=== PATIENT | female | born 1995 | race Caucasian/White ===

== ENCOUNTER 2018-04-15 21:50 | Outpatient (CLI) | payer OTHER, MEDICAID, SELFPAY | END 2018-04-15 22:50 | disposition home or self-care (01) | LOC: OB 04-17 09:21 | PROVIDERS: Visit Provider Family Medicine | DX: Z34.03 Encounter for supervision of normal first pregnancy, third trimester (principal); Z3A.31 31 weeks gestation of pregnancy | CPT/HCPCS: 59025; G0378; G0379 ==

== ENCOUNTER → 2018-05-13 14:13 | Outpatient (CLI) | payer OTHER, MEDICAID, SELFPAY ==
[2018-05-14 15:43] LABS: Strep Grp B PCR NEG for Grp B Strep
== END ==
PROVIDERS: Visit Provider Obstetrics & Gynecology
DX: Z3A.35 35 weeks gestation of pregnancy (principal)
CPT/HCPCS: 87653

== ENCOUNTER 2018-06-10 13:48 | Outpatient (CLI) | payer OTHER, MEDICAID, SELFPAY ==
--- NOTE | 2018-06-11 06:53 | P.TNLD_ITS ---
Visit Information Visit Information Date of evaluation: 06/10/18 Primary OB Provider: Lashawn Jones Reason for Evaluation: Yes non-stress test non-stress test reason: hypertension/ pre-eclampsia Evaluation Evaluation Baseline heart rate: 135 Variability: Moderate (11-25) monitor accelerations: Present monitor decelerations: Absent Category of Tracing: I Diagnosis, Plan/Disposition Final Diagnosis (1) 39 weeks gestation of : Current Visit: No Status: Acute (2) Gestational hypertension: Current Visit: No Status: Acute Plan/Disposition Plan: Discharge to home [facility]s Follow up as scheduled next week S/S of PIH reviewed
== END 2018-06-10 15:16 | disposition home or self-care (01) ==
LOC: LABOR 14:22 → OB 06-11 15:51
PROVIDERS: Visit Provider Obstetrics & Gynecology
DX: Z3A.39 39 weeks gestation of pregnancy (principal); O13.3 Gestational [pregnancy-induced] hypertension without significant proteinuria, third trimester
CPT/HCPCS: 59025; G0378; G0379

== ENCOUNTER 2018-06-17 14:56 | Outpatient (CLI) | payer OTHER, MEDICAID, SELFPAY ==
[2018-06-17 15:51] LABS: Add Manual Diff / Slide Review NO; Basophils Percent Auto 0.5 % (0-2); Eosinophils Percent Auto 0.4 % (2-4); Hematocrit 40.1 % (36-46); Hemoglobin 14.6 g/dL (12.0-16.0); Mean Corpuscular HGB Conc 36.3 % (30-36); Mean Corpuscular Hemoglobin 31.7 PG (26-34); Mean Corpuscular Volume 87.2 fL (80-100); Monocytes Percent Auto 6.6 % (3-14); Neutrophils Absolute Auto 9800 /uL (3000-5900); Neutrophils Percent Auto 77.5 % (50-75); Platelet Count 181 X10^3/uL (150-400); Red Cell Distribution Width 13.2 % (11.6-14.8); White Blood Cell Count 12.6 X10^3/uL (4.5-11.0)
[2018-06-17 16:16] LABS: Alanine Aminotransferase 26 IU/L (9-52); Albumin 3.6 g/dL (3.5-5.0); Albumin Globulin Ratio 1.4 (1.0-2.8); Alkaline Phosphatase 116 U/L (38-126); Aspartate Aminotransferase 15 IU/L (14-36); BUN Creatinine Ratio 13.3 (6-22); Bilirubin Total 0.5 mg/dL (0.2-1.3); Bilirubin Unconjugated 0.2 mg/dL (0.0-1.1); Blood Urea Nitrogen 8 mg/dL (7-17); Calcium 10.2 mg/dL (8.4-10.2); Carbon Dioxide 23 mmol/L (22-32); Chloride 104 mmol/L (98-107); Estimated Glomerular Filt Rate > 60.0 mL/min (>60); Globulin 2.5 g/dL (1.7-4.1); Glucose 78 mg/dL (70-100); HEMOLYSIS < 15 (0-50); Sodium 138 mmol/L (137-145); Total Protein 6.1 g/dL (6.3-8.2); Uric Acid 5.2 mg/dL (2.5-6.2)
== END 2018-06-17 16:52 | disposition home or self-care (01) ==
LOC: LABOR 16:39 → OB 06-21 10:00
PROVIDERS: Visit Provider Obstetrics & Gynecology
DX: O13.3 Gestational [pregnancy-induced] hypertension without significant proteinuria, third trimester (principal); Z3A.40 40 weeks gestation of pregnancy
CPT/HCPCS: 59025; 59050; 80053; 80076; 84550; 85025; G0378; G0379

== ENCOUNTER 2018-06-18 07:08 | Inpatient (IN) | payer OTHER, MEDICAID, SELFPAY ==
[2018-06-18 08:12] VITALS: BP 157/87
[2018-06-18] MEDS: OXYTOCIN PREMIX 30 UNIT/500 ML PLAST..BAG IV (09:25)
[2018-06-18] MEDS: LACTATED RINGERS 1,000 ML 100 ML IV (09:25)
[2018-06-18 09:27] LABS: Add Manual Diff / Slide Review NO; Basophils Percent Auto 0.5 % (0-2); Eosinophils Percent Auto 0.7 % (2-4); Hematocrit 40.6 % (36-46); Hemoglobin 14.5 g/dL (12.0-16.0); Lymphocytes Percent Auto 16.9 % (25-40); Mean Corpuscular HGB Conc 35.7 % (30-36); Mean Corpuscular Hemoglobin 31.1 PG (26-34); Mean Corpuscular Volume 87.1 fL (80-100); Monocytes Percent Auto 7.5 % (3-14); Neutrophils Absolute Auto 10000 /uL (3000-5900); Neutrophils Percent Auto 74.4 % (50-75); Platelet Count 190 X10^3/uL (150-400); Red Blood Cell Count 4.66 X10^6/uL (4.0-5.2); Red Cell Distribution Width 13.2 % (11.6-14.8); White Blood Cell Count 13.4 X10^3/uL (4.5-11.0)
[2018-06-18] MEDS: LACTATED RINGERS 1,000 ML 125 ML IV ×2 (13:33→15:01)
--- NOTE | 2018-06-18 19:58 | PM.OBHP.1 ---
OB HPI Date/Time Date of admission: 06/18/18 Date Patient Seen: 06/18/18 Time Patient Seen: 07:15 History of Present Condition Chief complaint: LABOR AND DELIVERY : 2 Para: 0 Estimated Date of Delivery: 06/12/18 Estimated Gestational Age (weeks): 40+ 6 Narrative: Karey Saini is a 22 year old female 2 para 1 presented for induction of labor at 40-,6/7 weeks gestation due to -induced hypertension Indications Indication for induction OB: post dates and medical complication (-induced hypertension) History of Present care: good care, initiated at week # (18) and number of visits (11) Dating criteria: LMP confirmed by 1st trimester US Ultrasounds: normal mid trimester US Obstetrical complications: gestational hypertension Medical complications: none Preadmission Labs Blood type: O (+) positive -: Antibody screen: negative, GBS status: negative, HBsAG: negative, HIV: negative, HSV 1: negative, HSV 2: negative and RPR/VDLR: negative -: Chlamydia screen: not detected and Gonorrhea screen: not detected -: Rubella: immune and Varicella: immune HCT: 36.8 HCAB: negative Quad screen: Normal 1 hr GTT: 92 Prior (ies) History: 1 miscarriage in 2016 Evaluation Evaluation Baseline heart rate: 140 Variability: Moderate (11-25) monitor accelerations: Present monitor decelerations: Absent Category of Tracing: I Cervical dilation (cm): 3 Cervical effacement (%): 80 station: -1 Laboratory results: Laboratory Tests 06/18/18 06/18/18 08:50 08:50 WBC 13.4 H RBC 4.66 Hgb 14.5 Hct 40.6 MCV 87.1 MCH 31.1 MCHC 35.7 RDW 13.2 Plt Count 190 Neut % (Auto) 74.4 Lymph % (Auto) 16.9 L Harvey % (Auto) 7.5 Eos % (Auto) 0.7 L Baso % (Auto) 0.5 Neut # (Auto) 70196 H Blood Type O Positive Antibody Screen Negative PFSH Social History Smoking Status: Current every day smoker Meds Home Medications Medication Instructions Recorded Confirmed Type nicotine [Nicoderm CQ] 7 mg TD QDAY #30 patch 01/11/18 06/18/18 Rx Allergies Allergy/AdvReac Type Severity Reaction Status Date / Time codeine [CODEINE] Allergy Mild HIVES Verified 06/18/18 08:02 Exam Vital Signs (past 8 hours): Generally: A well-developed, well-nourished white female, no acute distress Lungs: Clear to auscultation bilaterally Cardiovascular: Regular rate and rhythm Fundal height: 40 cm Estimated weight 7 and 0.5 lb Extremities: Trace edema, negative Homans, 1+ DTRs. Objective Labs Result Diagrams: 06/18/18 08:50 Labs: Laboratory Results - last 24 hr 06/18/18 06/18/18 08:50 08:50 WBC 13.4 H RBC 4.66 Hgb 14.5 Hct 40.6 MCV 87.1 MCH 31.1 MCHC 35.7 RDW 13.2 Plt Count 190 Neut % (Auto) 74.4 Lymph % (Auto) 16.9 L Harvey % (Auto) 7.5 Eos % (Auto) 0.7 L Baso % (Auto) 0.5 Neut # (Auto) 42003 H Blood Type O Positive Antibody Screen Negative Assessment and Plan (1) 40 weeks gestation of : Current visit: Yes Status: Acute (2) induced hypertension: Current visit: Yes Status: Acute (3) Encounter for induction of labor: Current visit: Yes Status: Acute Assessment: 22-year-old 2 para 0 at 40-,6/7 weeks gestation with -induced hypertension for induction of labor Plan: Pitocin per protocol 2 Epidural as necessary Expected management to spontaneous vaginal delivery
--- NOTE | 2018-06-18 20:11 | P.HPOB_ITS ---
OB HPI Date/Time Date of admission: 06/18/18 Date Patient Seen: 06/18/18 Time Patient Seen: 07:15 History of Present Condition Chief complaint: LABOR AND DELIVERY : 2 Para: 0 Estimated Date of Delivery: 06/12/18 Estimated Gestational Age (weeks): 40+ 6 Narrative: Karey Saini is a 22 year old female 2 para 1 presented for induction of labor at 40-,6/7 weeks gestation due to -induced hypertension Indications Indication for induction OB: post dates and medical complication (- induced hypertension) History of Present care: good care, initiated at week # (18) and number of visits (11) Dating criteria: LMP confirmed by 1st trimester US Ultrasounds: normal mid trimester US Obstetrical complications: gestational hypertension Medical complications: none Preadmission Labs Blood type: O (+) positive -: Antibody screen: negative, GBS status: negative, HBsAG: negative, HIV: negative, HSV 1: negative, HSV 2: negative and RPR/VDLR: negative -: Chlamydia screen: not detected and Gonorrhea screen: not detected -: Rubella: immune and Varicella: immune HCT: 36.8 HCAB: negative Quad screen: Normal 1 hr GTT: 92 Prior (ies) History: 1 miscarriage in 2016 Evaluation Evaluation Baseline heart rate: 140 Variability: Moderate (11-25) monitor accelerations: Present monitor decelerations: Absent Category of Tracing: I Cervical dilation (cm): 3 Cervical effacement (%): 80 station: -1 Laboratory results: Laboratory Tests 06/18/18 06/18/18 08:50 08:50 WBC 13.4 H RBC 4.66 Hgb 14.5 Hct 40.6 MCV 87.1 MCH 31.1 MCHC 35.7 RDW 13.2 Plt Count 190 Neut % (Auto) 74.4 Lymph % (Auto) 16.9 L Crawford % (Auto) 7.5 Eos % (Auto) 0.7 L Baso % (Auto) 0.5 Neut # (Auto) [id number] H Blood Type O Positive Antibody Screen Negative PFSH Social History Smoking Status: Current every day smoker Meds Home Medications Medication Instructions Recorded Confirmed Type nicotine [Nicoderm CQ] 7 mg TD QDAY #30 patch 01/11/18 06/18/18 Rx Allergies Allergy/AdvReac Type Severity Reaction Status Date / Time codeine [CODEINE] Allergy Mild HIVES Verified 06/18/18 08:02 Exam Vital Signs (past 8 hours): Generally: A well-developed, well-nourished white female, no acute distress Lungs: Clear to auscultation bilaterally Cardiovascular: Regular rate and rhythm Fundal height: 40 cm Estimated weight 7 and 0.5 lb Extremities: Trace edema, negative Homans, 1+ DTRs. Objective Labs Result Diagrams: 06/18/18 08:50 Labs: Laboratory Results - last 24 hr 06/18/18 06/18/18 08:50 08:50 WBC 13.4 H RBC 4.66 Hgb 14.5 Hct 40.6 MCV 87.1 MCH 31.1 MCHC 35.7 RDW 13.2 Plt Count 190 Neut % (Auto) 74.4 Lymph % (Auto) 16.9 L Crawford % (Auto) 7.5 Eos % (Auto) 0.7 L Baso % (Auto) 0.5 Neut # (Auto) 48752 H Blood Type O Positive Antibody Screen Negative Assessment and Plan (1) 40 weeks gestation of : Current visit: Yes Status: Acute (2) induced hypertension: Current visit: Yes Status: Acute (3) Encounter for induction of labor: Current visit: Yes Status: Acute Assessment: 22-year-old 2 para 0 at 40-,6/7 weeks gestation with -induced hypertension for induction of labor Plan: Pitocin per protocol 2 Epidural as necessary Expected management to spontaneous vaginal delivery
--- NOTE | 2018-06-18 20:57 | PM.OBPRVD ---
Events: Induced HTN and Labor Induction Delivery date: 06/18/18 Induction method: per pitocin protocol Delivery augmentation: rupture of membranes Delivery monitor: external FHT and external uterine Route of delivery: Episiotomy description: None Laceration description: Perineal - 2nd Degree Delivery repair: vicryl and chromic Estimated blood loss (mL): 300 Anesthesia type: Epidural Complications: None Narrative: Patient complete and pushed for 45 min. At 8:30 p.m., a live female delivered spontaneously over an intact perineum. No nuchal cord. The remainder of the body delivered without difficulty and was placed on mom's abdomen. The cord was double clamped and cut. Cord bloods were obtained. The placenta delivered intact with a 3 vessel cord at 8:33 p.m.. Fundus was massaged to firm. Second-degree vaginal/perineal laceration was repaired in the usual fashion. Hemostasis was achieved. Estimated blood loss 300 cc. Apgars 8 at 1 min and 9 at 5 min. . Epidural analgesia. Mom and stable to recovery. Plan for aftercare: To Routine [id number]
[2018-06-18] MEDS: IBUPROFEN 600 MG TABLET PO (22:30)
[2018-06-18] MEDS: LANOLIN OINT 7 GM 1 APPLIC TOP (23:17)
[2018-06-18] MEDS: DERMOPLAST SPRAY 20% 60 ML 1 SPRAY TOP (23:18)
[2018-06-19] MEDS: IBUPROFEN 600 MG TABLET PO ×4 (05:04→23:46)
[2018-06-19 06:35] LABS: Hematocrit 33.9 % (36-46)
[2018-06-19] MEDS: DOCUSATE 250 MG CAPSULE PO (11:39)
[2018-06-19] MEDS: PRENATAL VIT,CALC/IRON/FOLIC 1 TABLET 1 TAB PO (11:39)
[2018-06-20] MEDS: OXYCODONE/ACETAMINOPHEN 5/325 TABLET 1 TAB PO (05:15)
[2018-06-20] MEDS: IBUPROFEN 600 MG TABLET PO ×2 (10:03→16:57)
[2018-06-20] MEDS: DOCUSATE 250 MG CAPSULE PO (10:06)
[2018-06-20] MEDS: PRENATAL VIT,CALC/IRON/FOLIC 1 TABLET 1 TAB PO (10:06)
[2018-06-20] MEDS: LANOLIN OINT 7 GM 1 APPLIC TOP (10:06)
--- NOTE | 2018-06-20 10:55 | PM.OBPN.1 ---
Subjective - OB Interval history: Patient is a 22-year-old 1 para 1 day # 1 status post spontaneous vaginal delivery after induction of labor. going well. Pain well controlled with ibuprofen. Bleeding tapering. Exam Vital Signs (past 8 hours): Generally: Patient is sitting up in bed, holding infant, no acute distress Fundus: Firm at U -1 Extremities: Negative Homans, trace edema Objective Labs Result Diagrams: 06/19/18 06:25 Assessment & Plan (1) 40 weeks gestation of : Status: Acute Current Visit: Yes (2) induced hypertension: Status: Acute Current Visit: Yes (3) Encounter for induction of labor: Status: Acute Current Visit: Yes (4) Normal spontaneous vaginal delivery: Status: Acute Assessment and plan: Assessment: day # 1. Status post spontaneous vaginal delivery after induction of labor Mom doing very well Plan: Anticipate discharge 06/20/2018 Current Visit: Yes Plan day: 1 plan OB: routine care Time Spent With Patient Total time spent is greater than 50% in coordination of care (as documented) at patient's floor/unit and/or counseling patient: less than 15 minutes
--- NOTE | 2018-06-20 10:58 | PM.OBDS.1 ---
Discharge Providers Date of admission: 06/18/18 07:08 Consults: 06/18/18 22:22 Consult to Wildlife Removal Specialist Routine Comment: Discharge provider: Lashawn Jones MD Summary Date Patient Seen: 06/20/18 Time Patient Seen: 10:59 Hospital Course: The patient presented on 06/17/2018 for induction of labor secondary to postdates and gestational hypertension She received Pitocin IV. Received an epidural for pain management. She had a spontaneous vaginal delivery without complication. Her course was unremarkable. Peripartum Data Infant Delivery Method: Natural Vaginal Laceration description: Vaginal - 2nd Degree Episiotomy description: None Procedures: Pitocin induction of labor Epidural Spontaneous vaginal delivery 2 laceration repair complications: none Discharge Diagnosis (1) 40 weeks gestation of : Status: Acute (2) induced hypertension: Status: Acute (3) Encounter for induction of labor: Status: Acute (4) Normal spontaneous vaginal delivery: Status: Acute Status at Discharge Functional status at discharge: independent ambulation Overall status at discharge: patient is progressing back to baseline Time Spent with Patient Total time spent providing and/or coordinating discharge services: Less than 30 minutes Objective Labs Result Diagrams: 06/19/18 06:25 Discharge Plan Discharge Plan Patient Disposition: Home Discharge comment: Call with fever, chills or bleeding vaginally more than a pad in an hour Discharge Med Rec/Prescriptions Prescriptions: New oxycodone-acetaminophen [Percocet] 5-325 mg tablet 1 tab PO Q4-6H PRN (Reason: pain) Qty: 20 RF: 0 ibuprofen 600 mg tablet 600 mg PO TID PRN (Reason: pain) Qty: 30 RF: 2 Continue nicotine [Nicoderm CQ] 7 MG patch 24 hour 7 mg TD QDAY Qty: 30 RF: 2 Provider Discharge Instructions Diet: Diet as Tolerated Activity: No intercourse Visit Report/Discharge Packet Instructions: DI for Labor and Delivery, Vaginal Discharge Data Attending Provider: Lashawn Jones Admit Date/Time: 06/18/18 07:08
[2018-06-20 19:00] VITALS: BP 134/70; PULSE 82; RESP 16; TEMP 36.8
== END 2018-06-20 19:01 | disposition home or self-care (01) | DRG 560 ==
PROVIDERS: Admitting Provider Obstetrics & Gynecology; Visit Provider Obstetrics & Gynecology
DX: O13.4 Gestational [pregnancy-induced] hypertension without significant proteinuria, complicating childbirth (principal); O48.0 Post-term pregnancy; Z3A.40 40 weeks gestation of pregnancy; Z37.0 Single live birth; O70.1 Second degree perineal laceration during delivery
CPT/HCPCS: 01967; 36415; 59025; 59050; 59409; 80053; 80076; 84550; 85014; 85018; 85025; 86850; 86900; 86901; G0378; G0379; J2590

== ENCOUNTER 2019-01-26 19:56 | Emergency (ER) | payer OTHER, MEDICAID, SELFPAY ==
[2019-01-26 19:59] VITALS: BP 133/83; PULSE 117; RESP 20; TEMP 37.3; O2SAT 96
--- NOTE | 2019-01-26 20:04 | ED_ITS ---
HPI - URI/Sore Throat General Chief Complaint: Upper Respiratory Symptoms Stated Complaint: states sinus infection all of a sudden Time Seen by Provider: 01/26/19 20:04 Source: patient Mode of arrival: ambulatory Limitations: no limitations History of Present Illness HPI Narrative: Patient is a 23-year-old female who presents with sudden onset of nasal and congestion and sinus pressure. She is currently being treated for shingles with gabapentin she had shingles outbreak about a week and half ago on her back. He says that has not gotten any worse or any better. As this morning she had facial pain and ear plugging. She feels like her neck is swollen. She has no fever. She says this feels like a sinus infection. He states he also has mild headache. Her vision has become blurry off and on throughout the day, it does not seem to last MD Complaint: sinus pain Onset (ago): hour(s) Relieving factors: nothing Exacerbating factors: nothing Able to tolerate fluids by mouth: Yes Related Data Previous Rx's Medication Instructions Recorded ibuprofen 600 mg PO TID PRN #30 tab 06/20/18 norethindrone (contraceptive) 0.35 0.35 mg PO DAILY #28 tab 07/30/18 mg tablet gabapentin 100 mg capsule 100 mg PO TID PRN #90 cap 01/23/19 Allergies Allergy/AdvReac Type Severity Reaction Status Date / Time codeine [CODEINE] Allergy Mild HIVES Verified 01/23/19 14:56 Review of Systems Review of Systems ROS Unobtainable: All systems reviewed & are unremarkable except as noted in HPI and below Constitutional Denies chills, Denies fever(s), Denies lethargy and Denies weakness ENT Ears, Nose, Mouth, and Throat: Reports as per HPI, Denies nasal discharge, Denies nasal obstruction, Reports sinus pressure, Denies sore throat and Denies throat swelling Cardiovascular Denies dyspnea and Denies dyspnea on exertion Respiratory Denies cough, Denies dyspnea, Denies dyspnea on exertion and Denies wheezing Gastrointestinal Gastrointestinal: Denies abdominal pain, Denies change in bowel habits, Denies diarrhea, Denies nausea and Denies vomiting Integumentary/Breasts Reports as per HPI Comments: Shingles on back Neurologic Denies weakness Allergic/Immunologic Denies throat swelling and Denies wheezing [facility] Medical History Anxiety (Chronic) Depression (Chronic) (spontaneous vaginal delivery) (Resolved) Surgical History S/P ACL repair (Resolved) Family History Father Diabetes mellitus Social History marital status: unmarried,single number of children: 1 household members: family lives independently: Yes occupational status: unemployed Smoking Status: Current every day smoker alcohol intake: current (rare) substance use type: does not use Family History Father Diabetes mellitus Social History marital status: unmarried,single number of children: 1 household members: family lives independently: Yes occupational status: unemployed Smoking Status: Current every day smoker alcohol intake: current (rare) substance use type: does not use Comment: Currently breast-feeding Exam Initial Vital Signs Initial Vital Signs: Vital Signs Temperature 99.1 F 01/26/19 19:59 Pulse Rate 117 H 01/26/19 19:59 Respiratory Rate 20 01/26/19 19:59 Blood Pressure 133/83 01/26/19 19:59 Pulse Oximetry 96 01/26/19 19:59 GENERAL: Anxious alert overweight female and in no acute distress. HEENT: Head atraumatic,EOMI, pupils reactive, mild facial maxillary tenderness, neck supple no meningeal signs EARS: Tympanic membranes visualized, no erythema or bulging, no hemotympanum PHARYNX: No erythema, no tonsillar exudate, no cervical lymphadenopathy CARDIOVASCULAR: Regular rate and rhythm without murmurs, rubs or gallops. RESPIRATORY: Breath sounds equal bilaterally, no wheezes rales or rhonchi. ABDOMEN: Soft, nontender. Normoactive bowel sounds all 4 quadrants. No guarding or rebound. EXTREMITIES: Normal range of motion, no clubbing or edema. Neurovascularly intact NEUROLOGICAL: Alert and oriented x4.Normal gait and speech. Cranial nerves II through XII grossly intact. SKIN: Shingle lesions noted right thorax. No surrounding erythema no gross drainage no other lesions noted. no petechiae Course Orders Ordered: Discontinued Medications Ketorolac Tromethamine (Toradol) 60 mg IM NOW ONE Stop: 01/26/19 20:20 Last Admin: 01/26/19 20:23 Dose: 60 mg Vital Signs - 8 hr 01/26/19 19:59 01/26/19 20:42 01/26/19 20:55 Temperature 99.1 F Pulse Rate 117 H 98 H 98 H Respiratory Rate 20 Blood Pressure 133/83 Pulse Oximetry 96 99 MDM - URI/Sore Throat MDM Narrative Medical decision making narrative: Patient's headache has overall improved. She has no neck pain. At this time I do not think herpes encephalitis. Her bigger complaint is sinus pain and pressure. At this time she does not meet requirements for antibiotics. She has only had this pain for less than 1 day. Discharge Plan Departure Patient Disposition: Home Clinical Impression: Acute sinus infection Qualifiers: Sinusitis location: maxillary Recurrence: non-recurrent Qualified Code(s): J01.00 - Acute maxillary sinusitis, unspecified Discharge Date/Time: 01/26/19 20:56 Interventions: ED Discharge Assessment Last Done: 01/26/19 20:55 Instructions: DI for Sinusitis Activity Restrictions/Additional Instructions: *You have been diagnosed with acute sinusitis *What to do: At this time antibiotics are not indicated. It is recommended symptom control. Stay hydrated. If symptoms worsen or persist for more than 7- 10 days then he may require antibiotics *Continue to take medications as directed *Follow up with your primary care provider in 2-3 days *Return to ER if you should have a fever more than 100.4, increasing headache, neck pain, or any new, worsening or concerning symptoms Prescriptions: No Action norethindrone (contraceptive) [Ortho Micronor] 0.35 mg tablet 0.35 mg PO DAILY Qty: 28 RF: 11 gabapentin 100 mg capsule 100 mg PO TID PRN (Reason: shingles pain) Qty: 90 RF: 0 ibuprofen 600 mg tablet 600 mg PO TID PRN (Reason: pain) Qty: 30 RF: 2 Referrals: Nelida Rose DO [Physician] -
[2019-01-26] MEDS: KETOROLAC 60 MG/2 ML VIAL IM (20:23)
[2019-01-26 20:42] VITALS: PULSE 98
[2019-01-26 20:55] VITALS: PULSE 98; O2SAT 99
== END 2019-01-26 20:56 | disposition home or self-care (01) ==
PROVIDERS: Emergency Provider Emergency Medicine
DX: J01.00 Acute maxillary sinusitis, unspecified (principal)
CPT/HCPCS: 96372; 99282; 99283; J1885

== ENCOUNTER 2019-06-25 18:40 | Emergency (ER) | payer OTHER, MEDICAID, SELFPAY ==
[2019-06-25 18:50] VITALS: BP 127/76; PULSE 89; RESP 16; TEMP 36.8; O2SAT 97; BMI 39.6
[2019-06-25] MEDS: LIDO 1%/SOD BICARB 8.4% (10ML) 10 ML SYRINGE INJ (19:56)
--- NOTE | 2019-06-25 20:18 | ED.WOUNDLAC ---
HPI - Wound/Laceration General Chief Complaint: Wound/Laceration Stated Complaint: sliced rt foot open on pole Time Seen by Provider: 06/25/19 19:39 Source: patient and family Mode of arrival: ambulatory Limitations: no limitations History of Present Illness HPI narrative: 23-year-old female daily smoker with noncontributory medical history presents with her and young child in the chief complaint of a superficial laceration on the bottom of her right foot when she was walking, she cut it on a metal support beam. She had minimal bleeding originally. Her tetanus is up-to-date. She has pain with ambulation and improvement with rest. She denies any numbness, tingling or weakness. She has no fever chills. Onset (ago): hour(s) Extremity Location: Right: foot Place: home Patient tetanus UTD: Yes Context: accidental Associated symptoms: pain Treatments prior to arrival: bandage Related Data Previous Rx's Medication Instructions Recorded ibuprofen 600 mg PO TID PRN #30 tab 06/20/18 norethindrone (contraceptive) 0.35 0.35 mg PO DAILY #28 tab 07/30/18 mg tablet fluticasone propionate 50 2 spray NASAL DAILY #19.8 gram 03/05/19 mcg/actuation nasal spray,suspension cephalexin [Keflex] 500 mg PO QID 7 Days #28 cap 06/25/19 Allergies Allergy/AdvReac Type Severity Reaction Status Date / Time codeine [CODEINE] Allergy Mild HIVES Verified 06/25/19 18:55 Review of Systems Constitutional Constitutional: Denies chills, Denies fatigue, Denies fever(s), Denies frequent falls, Denies lethargy and Denies weakness Eyes Eyes: Denies change in vision, Denies eye discharge, Denies irritation and Denies loss of vision ENT Ears, Nose, Mouth, and Throat: Denies change in voice, Denies dizziness, Denies neck pain, Denies sore throat and Denies throat swelling Cardiovascular Cardiovascular: Denies chest pain, Denies irregular heart rhythm, Denies lightheadedness, Denies palpitations, Denies dyspnea, Denies dyspnea on exertion and Denies orthopnea Respiratory Respiratory: Denies cough, Denies dyspnea, Denies dyspnea on exertion and Denies wheezing Gastrointestinal Gastrointestinal: Denies abdominal pain, Denies change in bowel habits, Denies diarrhea, Denies nausea and Denies vomiting Genitourinary Genitourinary: Denies hematuria, Denies flank pain, Denies urinary incontinence and Denies urinary urgency Musculoskeletal Musculoskeletal: Denies back pain, Denies muscle weakness, Denies neck pain, Denies numbness and Denies tingling Integumentary/Breasts Skin/Breast: Denies pruritus, Denies erythema, Denies rash and Reports wounds Neurologic Neurologic: Denies behavioral changes, Denies confusion, Denies dizziness, Denies frequent falls, Denies loss of vision, Denies numbness, Denies tingling and Denies weakness Psychiatric Psychiatric: Denies anxiety, Denies behavioral changes, Denies confusion, Denies depression, Denies homicidal ideation and Denies suicidal ideation Endocrine Endocrine: Denies fatigue, Denies flushing and Denies palpitations Hematologic/Lymphatic Hematologic/Lymphatic: Denies easy bruising Allergic/Immunologic Allergic/Immunologic: Denies urticaria, Denies throat swelling and Denies wheezing [facility] Medical History Anxiety (Chronic) Depression (Chronic) (spontaneous vaginal delivery) (Resolved) Surgical History S/P ACL repair (Resolved) Family History Father Diabetes mellitus Social History marital status: unmarried,single number of children: 1 household members: family lives independently: Yes occupational status: unemployed Smoking Status: Current every day smoker alcohol intake: current (rare) substance use type: does not use Family History Father Diabetes mellitus Social History marital status: unmarried,single number of children: 1 household members: family lives independently: Yes occupational status: unemployed Smoking Status: Current every day smoker alcohol intake: current (rare) substance use type: does not use Exam Narrative Exam Narrative: GEN: AOx3 and in mild distress EYES: Pupils are equal, round, and reactive to light and accommodation. Extraoccular muscles are intact bilaterally. There is no subconjunctival hemorrhage or exudate. CHEST: Lungs are clear to auscultation bilaterally and free of wheezes, rales, or rhonchi. Heart rate is regular rhythm, there are no murmurs, clicks, rubs, or gallops. There is no chest wall tenderness. ABD: Abdomen is soft and nontender. There is no guarding or rebound. Bowel sounds are normal in all 4 quadrants. There is no mass or organomegaly. EXT: Full painless ROM of all extremities with no loss of sensation or strength. SKIN: 1.5cm superficial laceration on plantar surface of R foot. Cleaned and inspected in a bloodless field, no involvement of deep structures. No indication for sutures. Warm, pink, and dry. No erythema or rash Initial Vital Signs Initial Vital Signs: Vital Signs Temperature 98.2 F 06/25/19 18:50 Pulse Rate 89 06/25/19 18:50 Respiratory Rate 16 06/25/19 18:50 Blood Pressure 127/76 06/25/19 18:50 Pulse Oximetry 97 06/25/19 18:50 Course Orders Ordered: Discontinued Medications Lidocaine/Sodium Bicarbonate (Buffered Lidocaine 10 Ml Syr) 10 ml INJ NOW ONE Stop: 06/25/19 19:40 Last Admin: 06/25/19 19:56 Dose: 10 ml Documented by: [email or web address] Vital Signs Vital signs: Vital Signs - 8 hr 06/25/19 18:50 Temperature 98.2 F Pulse Rate 89 Respiratory Rate 16 Blood Pressure 127/76 Pulse Oximetry 97 Discharge Plan Departure Patient Disposition: Home Clinical Impression: Laceration of foot Qualifiers: Encounter type: initial encounter Laterality: right Qualified Code(s): S91.311A - Laceration without foreign body, right foot, initial encounter Discharge Date/Time: 06/25/19 20:20 Instructions: DI for Minor Laceration Activity Restrictions/Additional Instructions: *You have been diagnosed with [minor laceration, not requiring suture] *What to do: *Take medications as directed *Follow up with your primary care provider in 2-3 days, call for an appointment. Let them know you were seen in the Emergency Department and that we ask that you be seen in follow up *Return to ER if you should have any new, worsening or concerning symptoms, such as [worsening redness, pain, drainage, or other bothersome symptoms] Prescriptions: New cephalexin [Keflex] 500 mg capsule 500 mg PO QID 7 Days Qty: 28 RF: 0 No Action norethindrone (contraceptive) [Ortho Micronor] 0.35 mg tablet 0.35 mg PO DAILY Qty: 28 RF: 11 fluticasone propionate 50 mcg/actuation spray,suspension 2 spray NASAL DAILY Qty: 19.8 RF: 3 ibuprofen 600 mg tablet 600 mg PO TID PRN (Reason: pain) Qty: 30 RF: 2 Referrals: Nelida Rose DO [Primary Care Provider] -
== END 2019-06-25 20:20 | disposition home or self-care (01) ==
PROVIDERS: Emergency Provider Emergency Medicine; PCP Family Medicine
DX: S91.311A Laceration without foreign body, right foot, initial encounter (principal)
CPT/HCPCS: 99282; 99283

== ENCOUNTER → 2019-11-01 11:33 | Outpatient (CLI) | payer OTHER, MEDICAID, SELFPAY ==
[2019-11-01 12:15] LABS: Pregnancy Test Urine Negative (Negative)
== END ==
PROVIDERS: PCP Family Medicine; Visit Provider Family Medicine
DX: Z32.00 Encounter for pregnancy test, result unknown (principal)
CPT/HCPCS: 81025

== ENCOUNTER → 2019-12-04 15:01 | Outpatient (CLI) | payer OTHER, MEDICAID, SELFPAY ==
[2019-12-04 15:58] LABS: Influenza A - CEPHEID Flu A NEGATIVE (NEGATIVE); Influenza B - CEPHEID Flu B NEGATIVE (NEGATIVE)
== END ==
PROVIDERS: PCP Family Medicine; Visit Provider Registered Nurse
DX: J11.1 Influenza due to unidentified influenza virus with other respiratory manifestations (principal)
CPT/HCPCS: 87502

== ENCOUNTER → 2020-06-07 13:38 | Outpatient (CLI) | payer OTHER, MEDICAID, SELFPAY ==
[2020-06-07 13:44] LABS: Bacteria Urine None Seen; RBC Urine None Seen (0-5/HPF); WBC Urine None Seen (0-5/HPF)
[2020-06-07 15:44] LABS: Appearance Urine UA CLEAR; Bilirubin Urine UA NEGATIVE (NEGATIVE); Color Urine UA YELLOW; Glucose Urine UA NEGATIVE (Negative); Ketones Urine UA NEGATIVE (NEGATIVE); Leukocyte Esterase Urine UA NEGATIVE (NEGATIVE); Nitrite Urine UA NEGATIVE (Negative); Occult Blood Urine UA NEGATIVE (Negative); Protein Urine UA NEGATIVE (Negative); Specific Gravity Urine UA <=1.005 (1.000-1.035); Urobilinogen Urine UA 0.2 E.U./dL (0.2)
[2020-06-07 15:56] LABS: pH Urine UA 6.5 (4.5-8.0)
[2020-06-07 16:06] LABS: Culture Indicated Urine Cult Not Indicated; Urine Comments Microscopic Normal
== END ==
PROVIDERS: PCP Family Medicine; Referring Provider Family Medicine; Visit Provider Family Medicine
DX: R30.0 Dysuria (principal); R35.0 Frequency of micturition; R39.15 Urgency of urination
CPT/HCPCS: 81001

== ENCOUNTER → 2020-06-08 09:48 | Outpatient (CLI) | payer OTHER, MEDICAID, SELFPAY ==
[2020-06-11 12:11] LABS: Chlamydia trachomatis Negative (Negative); Mycoplasma genitalium Negative (Negative); Neisseria gonorrhoeae Negative (Negative)
== END ==
PROVIDERS: PCP Family Medicine; Visit Provider Family Medicine
DX: N89.8 Other specified noninflammatory disorders of vagina (principal); R30.0 Dysuria
CPT/HCPCS: 87210; 87491; 87591

== ENCOUNTER → 2021-04-09 11:08 | Outpatient (CLI) | payer OTHER, MEDICAID, SELFPAY ==
[2021-04-09 11:47] LABS: COVID19 -Nasal RAPID Negative (Negative)
== END ==
PROVIDERS: PCP Family Medicine; Visit Provider Physician Assistant
DX: J02.9 Acute pharyngitis, unspecified (principal)
CPT/HCPCS: 87070; 87635

== ENCOUNTER 2021-05-07 17:39 | Emergency (ER) | payer OTHER, MEDICAID, SELFPAY ==
[2021-05-07 17:47] VITALS: BP 142/75; PULSE 96; RESP 20; TEMP 37.1; O2SAT 96; BMI 42.0
[2021-05-07 18:01] LABS: Add Manual Diff / Slide Review NO; Basophils Absolute Auto 100 /uL (0-100); Basophils Percent Auto 0.7 % (0-2); Eosinophils Absolute Auto 200 /uL (0-450); Eosinophils Percent Auto 2.2 % (2-4); Hematocrit 48.7 % (36-46); Hemoglobin 16.9 g/dL (12.0-16.0); Lymphocytes Absolute Auto 3700 /uL (1100-4500); Lymphocytes Percent Auto 34.9 % (25-40); Mean Corpuscular HGB Conc 34.6 % (30-36); Mean Corpuscular Hemoglobin 31.5 PG (26-34); Monocytes Absolute Auto 600 /uL (0-900); Neutrophils Absolute Auto 5900 /uL (1500-7000); Neutrophils Percent Auto 56.2 % (50-75); Platelet Count 238 X10^3/uL (150-400); Red Blood Cell Count 5.36 X10^6/uL (4.0-5.2); Red Cell Distribution Width 12.2 % (11.6-14.8); White Blood Cell Count 10.6 X10^3/uL (4.5-11.0)
[2021-05-07 18:11] LABS: Alanine Aminotransferase 58 IU/L (<35); Albumin 4.6 g/dL (3.5-5.0); Albumin Globulin Ratio 1.5 (1.0-2.8); Alkaline Phosphatase 80 U/L (38-126); Aspartate Aminotransferase 38 IU/L (14-36); BUN Creatinine Ratio 14.3 (6-22); Bilirubin Total 0.5 mg/dL (0.2-1.3); Blood Urea Nitrogen 9 mg/dL (7-17); Carbon Dioxide 28 mmol/L (22-32); Chloride 104 mmol/L (98-107); Estimated Glomerular Filt Rate > 60.0 mL/min (>60); Globulin 3.1 g/dL (1.7-4.1); Glucose 105 mg/dL (70-100); HEMOLYSIS 22 (0-50); Lipase 95 U/L (23-300); Sodium 140 mmol/L (137-145); Total Protein 7.7 g/dL (6.3-8.2)
--- NOTE | 2021-05-07 19:17 | DI.CT.S_ITS ---
PROCEDURE: CT ABDOMEN PELVIS W CON INDICATIONS: Upper abdominal pain, belching, TECHNIQUE: After the administration of intravenous contrast, axial sections acquired from the lung bases to the pubic symphysis. Coronal and sagittal reformats were performed. For radiation dose reduction, the following was used: automated exposure control, adjustment of mA and/or kV according to patient size. COMPARISON: None. FINDINGS: Image quality: Excellent. Lung bases: Unremarkable. Heart: No significant findings. ABDOMEN: Liver: Unremarkable. Gallbladder: Unremarkable. Biliary ducts: Unremarkable. Pancreas: Unremarkable. Spleen: Unremarkable. Adrenal Glands: Unremarkable. Kidneys and Ureters: Unremarkable. Stomach and Bowel: Stomach is filled with ingested material. The small bowel loops, and colon are unremarkable. Normal appendix. Peritoneum: No abnormal intraperitoneal fluid. No free air. Ventral Wall: No hernias. Abdominal Nodes: No retroperitoneal or mesenteric adenopathy by size criteria. Vessels: Aorta and inferior vena cava are normal in size. PELVIS: Pelvic Organs: Uterus and left ovary appear normal. There is a peripherally vascular involuting cyst associated with the right ovary.. Bladder: Unremarkable. Pelvic Nodes: No enlarged lymph nodes. Miscellaneous: No hernias are seen. Bones: Unremarkable. IMPRESSION: No acute process. Dictated by: Shama Knapp M.D. on 05/07/2021 at 19:54 Approved by: Shama Knapp M.D. on 05/07/2021 at 19:57
[2021-05-07] MEDS: ONDANSETRON 4 MG/2 ML INJ IV (19:33)
[2021-05-07] MEDS: SODIUM CHLORIDE 0.9% 1,000 ML 1000 ML IV (19:33)
--- NOTE | 2021-05-07 20:08 | ED.ABDPAIN ---
HPI - Abdominal Pain General Chief Complaint: Abdominal Pain Stated Complaint: stomache pain, nauseas Time Seen by Provider: 05/07/21 18:00 Source: patient Mode of arrival: Ambulatory Limitations: no limitations History of Present Illness HPI narrative: 25-year-old woman with no significant medical issues presents with 24 hours of increasing right lower quadrant crampy type abdominal pain. This morning the pain increased significantly and was more noticeable in the upper quadrants associated with dry heaves and a sense of abdominal fullness with an inability to actually vomit. She notes that she did have a normal bowel movement this morning. She denies any fevers. No headaches, chest pain or palpitations. She does have a reflux type burning and burning at the back of her throat as well. She has taken Tums Prilosec and Tylenol today and has not found any of these to be effective. Related Data Previous Rx's Medication Instructions Recorded ibuprofen 600 mg tablet 600 mg PO TID PRN #30 tab 06/20/18 permethrin 5 % topical cream 1 applictn TOP ONCE #60 gram 02/04/20 metronidazole 500 mg tablet 500 mg PO TID #21 tab 06/08/20 mupirocin 2 % topical ointment 1 applic TOPICAL TID #30 g 09/06/20 triamcinolone acetonide 0.5 % 1 applic TOPICAL TID #90 g 09/06/20 topical cream metoclopramide HCl 10 mg tablet 10 mg PO Q6H PRN #20 tab 05/07/21 Allergies Allergy/AdvReac Type Severity Reaction Status Date / Time codeine [CODEINE] Allergy Mild HIVES Verified 04/09/21 10:53 Review of Systems Review of Systems Narrative: Remainder of complete review of systems is otherwise unremarkable except for that included in the HPI. Patient History Medical History Anxiety Depression Skin rash (spontaneous vaginal delivery) Surgical History S/P ACL repair Family History Father Diabetes mellitus Social History marital status: unmarried,single number of children: 1 household members: family lives independently: Yes occupational status: unemployed Smoking Status: Current every day smoker alcohol intake: current (rare) substance use type: does not use Smoking Status: Current every day smoker alcohol intake frequency: holidays/special occasions only Substance Use Type: marijuana Exam Narrative Exam Narrative: General: Appears to feel unwell but no severe distress. Able to give a complete and coherent history. Well-nourished well-developed HEENT: Moist mucous membranes, normal sclera with reactive pupils, Neck: No JVD, supple Respiratory: Lungs are clear to auscultation, no wheezing no rales no rhonchi. Full and symmetrical air movement Cardiac: Regular rate and rhythm no murmurs no bruits Abdomen: Soft, recurrent episodes of belching, mild epigastric tenderness no rebound or guarding, good bowel tones, no flank pain Skin: Warm and dry, no rashes Neurologic: Grossly neurologically intact with no obvious asymmetries or abnormalities Extremities: No trauma, well perfused Psych: Cooperative, appropriate insight and affect Initial Vital Signs Initial Vital Signs: Vital Signs Temperature 98.7 F 05/07/21 17:47 Pulse Rate 96 H 05/07/21 17:47 Respiratory Rate 20 05/07/21 17:47 Blood Pressure 142/75 H 05/07/21 17:47 Pulse Oximetry 96 05/07/21 17:47 Course Orders Ordered: Discontinued Medications Sodium Chloride (Normal Saline 0.9%) 1,000 mls @ 1,000 mls/hr IV BOLUS ONE Stop: 05/07/21 20:15 Last Infusion: 05/07/21 20:53 Dose: 0 mls/hr Documented by: Admin: 05/07/21 19:33 Dose: 1,000 mls/hr Documented by: ASIF Metoclopramide HCl (Metoclopramide 10 Mg/2 Ml Inj) 10 mg IV NOW ONE Stop: 05/07/21 20:09 Last Admin: 05/07/21 20:34 Dose: 10 mg Documented by: JJ Ondansetron HCl (Ondansetron 4 Mg/2 Ml Inj) 4 mg IV NOW ONE Stop: 05/07/21 19:17 Last Admin: 05/07/21 19:33 Dose: 4 mg Documented by: ASIF Vital Signs Vital signs: Vital Signs - 8 hr 05/07/21 17:47 05/07/21 20:41 05/07/21 20:42 Temperature 98.7 F Pulse Rate 96 H 65 Respiratory Rate 20 Blood Pressure 142/75 H 123/66 Pulse Oximetry 96 96 96 05/07/21 20:52 Temperature Pulse Rate 74 Respiratory Rate Blood Pressure 118/61 Pulse Oximetry 94 MDM - Abdominal Pain Lab Data Result diagrams: 05/07/21 17:55 05/07/21 17:55 Labs: Lab Results 05/07/21 05/07/21 Range/Units 17:55 17:55 WBC 10.6 (4.5-11.0) X10^3/uL RBC 5.36 H (4.0-5.2) X10^6/uL Hgb 16.9 H (12.0-16.0) g/dL Hct 48.7 H (36-46) % MCV 91.0 (80-100) fL MCH 31.5 (26-34) PG MCHC 34.6 (30-36) % RDW 12.2 (11.6-14.8) % Plt Count 238 (150-400) X10^3/uL Neut % (Auto) 56.2 (50-75) % Lymph % (Auto) 34.9 (25-40) % [place] % (Auto) 6.0 (3-14) % Eos % (Auto) 2.2 (2-4) % Baso % (Auto) 0.7 (0-2) % Neut # (Auto) 5900 (3025-9723) /uL Lymph # (Auto) 3700 (1948-5533) /uL [place] # (Auto) 600 (0-900) /uL Eos # (Auto) 200 (0-450) /uL Baso # (Auto) 100 (0-100) /uL Sodium 140 (137-145) mmol/L Potassium 4.0 (3.4-5.1) mmol/L Chloride 104 (98-107) mmol/L Carbon Dioxide 28 (22-32) mmol/L BUN 9 (7-17) mg/dL Creatinine 0.63 (0.52-1.04) mg/dL Estimated GFR > 60.0 (>60) mL/min BUN/Creatinine Ratio 14.3 (6-22) Glucose 105 H (70-100) mg/dL Calcium 10.0 (8.4-10.2) mg/dL Total Bilirubin 0.5 (0.2-1.3) mg/dL AST 38 H (14-36) IU/L ALT 58 H (<35) IU/L Alkaline Phosphatase 80 (38-126) U/L Total Protein 7.7 (6.3-8.2) g/dL Albumin 4.6 (3.5-5.0) g/dL Globulin 3.1 (1.7-4.1) g/dL Albumin/Globulin Ratio 1.5 (1.0-2.8) Lipase 95 (23-300) U/L Point of care testing: Point of Care Testing Test Results Negative Urine Dip Bedside Urine Glucose Negative Bedside Urine Bilirubin - Negative Bedside Urine Ketone - Negative Urine Specific [place] 1.020 Bedside Urine Occult Blood - Negative Bedside Urine pH 6.5 Bedside Urine Protein - Negative Bedside Urine Urobilinogen - Negative Bedside Urine Nitrite - Negative Bedside Urine Leukocytes - Negative Esterase Imaging Data CT scan - abdomen/pelvis: Radiologist's Impression: FINDINGS: Image quality: Excellent. Lung bases: Unremarkable. Heart: No significant findings. ABDOMEN: Liver: Unremarkable. Gallbladder: Unremarkable. Biliary ducts: Unremarkable. Pancreas: Unremarkable. Spleen: Unremarkable. Adrenal Glands: Unremarkable. Kidneys and Ureters: Unremarkable. Stomach and Bowel: Stomach is filled with ingested material. The small bowel loops, and colon are unremarkable. Normal appendix. Peritoneum: No abnormal intraperitoneal fluid. No free air. Ventral Wall: No hernias. Abdominal Nodes: No retroperitoneal or mesenteric adenopathy by size criteria. Vessels: Aorta and inferior vena cava are normal in size. PELVIS: Pelvic Organs: Uterus and left ovary appear normal. There is a peripherally vascular involuting cyst associated with the right ovary.. Bladder: Unremarkable. Pelvic Nodes: No enlarged lymph nodes. Miscellaneous: No hernias are seen. Bones: Unremarkable. IMPRESSION: No acute process. Dictated by: Shama Knapp M.D. on 05/07/2021 at 19:54 MDM Narrative Medical decision making narrative: 25-year-old woman with abdominal pain initially left lower quadrant now to the upper abdomen with significant increased belching and a sense that nothing is passing past her stomach. With mildly elevated LFTs noted on labs CT scan of the abdomen is ordered. It is unremarkable. She is given a total of 2 L of fluid Zofran followed by Reglan and notes significant improvement in overall symptoms particularly after the Reglan. No evidence of acute abdominal obstruction, surgical abdomen or intra-abdominal infection. No evidence of acute coronary syndrome. Uncertain etiology to explain her pain, at this point significantly improved with no life-threatening diagnosis is identified. She is safe for home discharge Discharge Plan Departure Patient Disposition: Home Clinical Impression: Abdominal pain Qualifiers: Abdominal location: upper abdomen, unspecified Qualified Code(s): R10.10 - Upper abdominal pain, unspecified Instructions: DI for Abdominal Pain-Adult Prescriptions: New metoclopramide HCl 10 mg tablet 10 mg PO Q6H PRN (Reason: nausea and vomiting) Qty: 20 RF: 0 No Action triamcinolone acetonide 0.5 % cream 1 applic topical TID Qty: 90 RF: 0 mupirocin 2 % ointment 1 applic topical TID Qty: 30 RF: 0 permethrin 5 % cream 1 applictn TOP ONCE Qty: 60 RF: 0 metronidazole 500 mg tablet 500 mg PO TID Qty: 21 RF: 0 ibuprofen 600 mg tablet 600 mg PO TID PRN (Reason: pain) Qty: 30 RF: 2 Referrals: Nelida Rose DO [Primary Care Provider] -
[2021-05-07] MEDS: METOCLOPRAMIDE 10 MG/2 ML INJ IV (20:34)
[2021-05-07 20:41] VITALS: O2SAT 96
[2021-05-07 20:42] VITALS: BP 123/66; PULSE 65; O2SAT 96
[2021-05-07 20:52] VITALS: BP 118/61; PULSE 74; O2SAT 94
== END 2021-05-07 21:52 | disposition home or self-care (01) ==
PROVIDERS: Emergency Medicine; Emergency Provider Emergency Medicine; PCP Family Medicine
DX: R10.10 Upper abdominal pain, unspecified (principal); R11.10 Vomiting, unspecified
CPT/HCPCS: 36415; 74177; 80053; 81003; 81025; 83690; 85025; 96361; 96374; 96375; 99284; J2405; J2765; Q9967

== ENCOUNTER → 2021-12-19 16:47 | Outpatient (CLI) | payer OTHER, MEDICAID, SELFPAY ==
[2021-12-19 18:36] LABS: Follicle Stimulating Hormone 5.01 mIU/mL; Luteinizing Hormone 7.93 mIU/mL
[2021-12-19 18:45] LABS: Free T4, Direct Thyroxine 0.98 ng/dL (0.78-2.19)
== END ==
PROVIDERS: PCP Family Medicine; Referring Provider Obstetrics & Gynecology; Visit Provider Obstetrics & Gynecology
DX: N97.0 Female infertility associated with anovulation (principal)
CPT/HCPCS: 36415; 83001; 83002; 84439; 84443

== ENCOUNTER → 2022-09-15 13:30 | Outpatient (CLI) | payer OTHER, MEDICAID, SELFPAY ==
[2022-09-15 14:39] LABS: Influenza A - CEPHEID Flu A NEGATIVE (NEGATIVE); Influenza B - CEPHEID Flu B NEGATIVE (NEGATIVE); Respiratory Syncytial Virus Negative (Negative)
[2022-09-15 14:43] LABS: COVID-19 CEPHEID 4-PLEX PCR Negative (Negative)
== END ==
PROVIDERS: PCP Family Medicine; Visit Provider Physician Assistant
DX: R05.9 Cough, unspecified (principal)
CPT/HCPCS: 0241U

== ENCOUNTER → 2022-12-06 14:50 | Outpatient (CLI) | payer OTHER, MEDICAID, SELFPAY ==
--- NOTE | 2022-12-06 19:24 | DI.NM.S_ITS ---
DATE OF SERVICE: 12/06/2022 PROCEDURE: Exercise stress test. INDICATIONS: Dizziness. CARDIAC STRESS: The patient underwent exercise stress test under the supervision of an attending staff. She walked on Matt protocol for 8 minutes and 30 seconds, achieved maximum heart rate of 149, which was 77 percent of target heart rate. Resting blood pressure 115/78 and peak blood pressure 180/80 mmHg. KIT +20 percent. Achieved 10.1 METs of workload. Baseline rhythm was sinus. During stress, no convincing ischemic changes seen. No chest pain. The patient had fatigue and lightheadedness, hence test was discontinued. CONCLUSION: Submaximal exercise stress test is negative for inducible ischemia. The patient achieved 77 percent of maximum heart rate. [place] fatigue and lightheadedness, hence test was discontinued. Normal blood pressure response. No significant arrhythmias. As far as exercise stress test is concerned, it is a low-risk stress test. Karey Saini - CHANCE/gallo/JUD doc#: [id number]/job#: [id number] dd: 12/06/2022 17:39:00 dt: 12/06/2022 18:00:00 DICTATING /COPIES TO: Edyta Ortega MD COPIES MNE: RAFY;
== END ==
PROVIDERS: PCP Family Medicine; Referring Provider Family Medicine; Visit Provider Family Medicine
DX: R68.89 Other general symptoms and signs (principal); R42 Dizziness and giddiness
CPT/HCPCS: 93017

== ENCOUNTER → 2022-12-28 09:01 | Outpatient (CLI) | payer OTHER, MEDICAID, SELFPAY ==
[2022-12-28 10:12] LABS: Add Manual Diff / Slide Review NO; Basophils Absolute Auto 0 /uL (0-100); Basophils Percent Auto 0.6 % (0-2); Eosinophils Absolute Auto 100 /uL (0-450); Eosinophils Percent Auto 1.6 % (2-4); Hematocrit 43.5 % (36-46); Lymphocytes Absolute Auto 2500 /uL (1100-4500); Mean Corpuscular HGB Conc 34.5 % (30-36); Mean Corpuscular Hemoglobin 30.2 PG (26-34); Mean Corpuscular Volume 87.5 fL (80-100); Monocytes Absolute Auto 500 /uL (0-900); Monocytes Percent Auto 6.5 % (3-14); Neutrophils Absolute Auto 4900 /uL (1500-7000); Neutrophils Percent Auto 60.3 % (50-75); Platelet Count 248 X10^3/uL (150-400); Red Blood Cell Count 4.97 X10^6/uL (4.0-5.2); Red Cell Distribution Width 12.7 % (11.6-14.8); White Blood Cell Count 8.1 X10^3/uL (4.5-11.0)
[2022-12-28 10:23] LABS: Alanine Aminotransferase 37 IU/L (<35); Albumin Globulin Ratio 1.5 (1.0-2.8); Alkaline Phosphatase 75 U/L (38-126); Aspartate Aminotransferase 25 IU/L (14-36); Bilirubin Total 0.4 mg/dL (0.2-1.3); Blood Urea Nitrogen 11 mg/dL (7-17); Calcium 8.8 mg/dL (8.4-10.2); Carbon Dioxide 26 mmol/L (22-32); Chloride 102 mmol/L (98-107); Cholesterol 192 mg/dL (140-199); Estimated Glomerular Filt Rate > 60 mL/min (>60); Globulin 2.6 g/dL (1.7-4.1); Glucose 109 mg/dL (70-100); HDL Cholesterol 36 mg/dL (40-60); HEMOLYSIS 16 (0-50); LDL Cholesterol Calculated 135 mg/dL (<100); Potassium 4.2 mmol/L (3.4-5.1); Sodium 136 mmol/L (137-145); Total Protein 6.6 g/dL (6.3-8.2); Triglycerides 104 mg/dL (35-150)
[2022-12-28 10:52] LABS: TSH w/ Reflex to FT4 2.26 uIU/mL (0.47-4.68)
== END ==
PROVIDERS: PCP Family Medicine; Referring Provider Family Medicine; Visit Provider Family Medicine
DX: R68.89 Other general symptoms and signs (principal)
CPT/HCPCS: 36415; 80053; 80061; 84443; 85025

== ENCOUNTER 2023-09-14 12:25 | Emergency (ER) | payer OTHER, MEDICAID, SELFPAY ==
[2023-09-14 12:30] VITALS: BP 144/77; PULSE 88; RESP 14; O2SAT 99; BMI 42.0
--- NOTE | 2023-09-14 12:34 | DI.RAD.S_ITS ---
PROCEDURE: XR KNEE LT 3V INDICATIONS: knee pain TECHNIQUE: 3 views of the knee were acquired. COMPARISON: [facility], , KNEE 3V LEFT, 04/23/2012, 17:39. FINDINGS: Bones: Remote ACL repair. Intact metallic screw with no evidence of hardware failure or loosening. No fractures or dislocations. No suspicious bony lesions. No significant degenerative arthritis. Soft tissues: Moderate joint effusion. No suspicious soft tissue calcifications. IMPRESSION: Moderate knee joint effusion. No acute bony abnormality. Comment: If clinically suspect significant internal derangement, consider nonemergent knee MRI. Dictated by: Abe Sanchez M.D. on 09/14/2023 at 13:31 Approved by: Abe Sanchez M.D. on 09/14/2023 at 13:32
--- NOTE | 2023-09-14 13:18 | ED_ITS ---
<Statement entered by Rony Barney MD - 09/14/23 20:54> Case discussed was being imaging reviewed prior to discharge agree with the above plan HPI - Extremity Injury (Lower) General Chief Complaint: Extremity Injury, Lower Stated Complaint: hurt L/ knee, unable to bear weight Time Seen by Provider: 09/14/23 12:45 Source: patient Mode of arrival: Ambulatory History of Present Illness HPI Narrative: 27-year-old female with history of left ACL reconstruction 15 years ago, who presents for evaluation of left knee pain. She squatted 2 days ago and felt acute onset of pain across the medial lateral area of the left knee. She would difficulty walking but could still bear. She is been taking a small dose of ibuprofen intermittently without significant relief. She notices that there is more swelling of the knee today and she came in to get it checked out. She denies pain in any other extremity. She has not had a fever. Related Data Previous Rx's Medication Instructions Recorded benzonatate 100 mg capsule 100 mg PO BID PRN cough #20 caps 01/15/23 bupropion HCl 150 mg 24 hr tablet, 150 mg PO QAM #90 tabs 03/26/23 extended release Allergies Allergy/AdvReac Type Severity Reaction Status Date / Time codeine [CODEINE] Allergy Mild HIVES Verified 09/14/23 12:31 Review of Systems Review of Systems Narrative: GENERAL: Denies chills, fatigue, malaise, fever, sweats. RESPIRATORY: Denies dyspnea, cough, wheezing, hemoptysis, sputum. CARDIOVASCULAR: Denies chest pain, palpitations, orthopnea, edema, MUSCULOSKELETAL: See HPI SKIN: Denies rash, skin lesions, or other NEUROLOGIC: Denies weakness, headache, numbness, change in speech, confusion, seizures, incoordination. PSYCHIATRIC: No concerning psychosocial issues. 12 point review of systems is negative except for those stated above Patient History Medical History Tobacco use Morbid obesity with BMI of 40.0-44.9, adult Depression Anxiety (spontaneous vaginal delivery) Surgical History S/P ACL repair Family History Father Diabetes mellitus Social History marital status: unmarried,single number of children: 1 household members: family lives independently: Yes occupational status: unemployed Smoking Status: Former smoker alcohol intake: current (rare) substance use type: does not use Smoking Status: Former smoker alcohol intake frequency: holidays/special occasions only Substance Use Type: marijuana Exam Narrative Exam Narrative: Lower extremity exam: Left knee moderate swelling compared to the right. She has moderate effusion anterior patella. The skin is warm and dry, without significant warmth. ACL, MCL, and LCL are without laxity. She is most tender over around the medial joint line. Initial Vital Signs Initial Vital Signs: Vital Signs Pulse Rate 88 09/14/23 12:30 Respiratory Rate 14 09/14/23 12:30 Blood Pressure 144/77 H 09/14/23 12:30 Pulse Oximetry 99 09/14/23 12:30 Oxygen Delivery Method Room Air 09/14/23 12:30 Course Orders Ordered: ED Orders 09/14/23 12:34 XR knee LT 3V Stat Vital Signs Vital signs: Vital Signs - 8 hr 09/14/23 12:30 Pulse Rate 88 Respiratory Rate 14 Blood Pressure 144/77 H Pulse Oximetry 99 Oxygen Delivery Method Room Air MDM - Extremity Injury (Lower) Imaging Data Extremity x-ray #1: Radiologist's Impression: PROCEDURE: XR KNEE LT 3V INDICATIONS: knee pain TECHNIQUE: 3 views of the knee were acquired. COMPARISON: [facility], , KNEE 3V LEFT, 04/23/2012, 17:39. FINDINGS: Bones: Remote ACL repair. Intact metallic screw with no evidence of hardware failure or loosening. No fractures or dislocations. No suspicious bony lesions. No significant degenerative arthritis. Soft tissues: Moderate joint effusion. No suspicious soft tissue calcifications. IMPRESSION: Moderate knee joint effusion. No acute bony abnormality. Comment: If clinically suspect significant internal derangement, consider none mergent knee MRI. Dictated by: Abe Sanchez M.D. on 09/14/2023 at 13:31 Approved by: Abe Sanchez M.D. on 09/14/2023 at 13:32 [facility] Narrative Medical decision making narrative: The injury appears to be a strain of the knee with a moderate to significant effusion. The patient's temperature is 98.6 and I have a low suspicion for any sort of infectious process. Discussed the possibility of a joint aspiration but considering the risks of infection we will try conservative home care 1st with follow up in orthopedics. Patient was also seen by Dr. Barney who agrees with assessment and plan. Discharge Plan Departure Patient Disposition: Home Clinical Impression: Knee Injury Instructions: DI for Knee Sprain Activity Restrictions/Additional Instructions: Your x-ray shows a collection of fluid in the knee joint which often accompanies a ligament injury. There are no bony changes on x-ray. It is likely you had a strain or sprain of 1 of the ligaments or the meniscus which is the padding between your femur and your tibia. Your exam is reassuring do not note any significant ligament injury. Best thing he could do at this point is to take ibuprofen at 600 mg 3 times a day and do that consistently for the next week or so until you can have orthopedic follow-up. I recommend that you go back to the practice that saw you for your ACL repair. As far as helping with the swelling continued to elevate the leg as much as possible and apply ice off and on throughout the day. Probably best to stay nonweightbearing and use the crutches as much as you can. It was a pleasure to take care of you today. Prescriptions: No Action benzonatate 100 mg capsule 100 mg PO BID PRN (Reason: cough) Qty: 20 0RF bupropion HCl 150 mg tablet extended release 24 hr 150 mg PO QAM Qty: 90 3RF Referrals: Marisela Le DO [Primary Care Provider] - Stand Alone Forms: Patient Portal/API
[2023-09-14 14:12] VITALS: BP 150/85; PULSE 90; RESP 12; TEMP 36.9; O2SAT 98
--- NOTE | 2023-09-14 14:29 | ED.LOWEXIN ---
HPI - Extremity Injury (Lower) General Chief Complaint: Extremity Injury, Lower Stated Complaint: hurt L/ knee, unable to bear weight Time Seen by Provider: 09/14/23 12:45 Source: patient Mode of arrival: Ambulatory Related Data Previous Rx's Medication Instructions Recorded benzonatate 100 mg capsule 100 mg PO BID PRN cough #20 caps 01/15/23 bupropion HCl 150 mg 24 hr tablet, 150 mg PO QAM #90 tabs 03/26/23 extended release Allergies Allergy/AdvReac Type Severity Reaction Status Date / Time codeine [CODEINE] Allergy Mild HIVES Verified 09/14/23 12:31 Patient History Medical History Tobacco use Morbid obesity with BMI of 40.0-44.9, adult Depression Anxiety (spontaneous vaginal delivery) Surgical History S/P ACL repair Family History Father Diabetes mellitus Social History marital status: unmarried,single number of children: 1 household members: family lives independently: Yes occupational status: unemployed Smoking Status: Former smoker alcohol intake: current (rare) substance use type: does not use Smoking Status: Former smoker alcohol intake frequency: holidays/special occasions only Substance Use Type: marijuana Exam Initial Vital Signs Initial Vital Signs: Vital Signs Pulse Rate 88 09/14/23 12:30 Respiratory Rate 14 09/14/23 12:30 Blood Pressure 144/77 H 09/14/23 12:30 Pulse Oximetry 99 09/14/23 12:30 Oxygen Delivery Method Room Air 09/14/23 12:30 Course Orders Ordered: ED Orders 09/14/23 12:34 XR knee LT 3V Stat Vital Signs Vital signs: Vital Signs - 8 hr 09/14/23 12:30 09/14/23 14:12 Temperature 98.4 F Pulse Rate 88 90 Respiratory Rate 14 12 Blood Pressure 144/77 H 150/85 H Pulse Oximetry 99 98 Oxygen Delivery Method Room Air Room Air Discharge Plan Departure Patient Disposition: Home Clinical Impression: Knee Injury Instructions: DI for Knee Sprain Activity Restrictions/Additional Instructions: Your x-ray shows a collection of fluid in the knee joint which often accompanies a ligament injury. There are no bony changes on x-ray. It is likely you had a strain or sprain of 1 of the ligaments or the meniscus which is the padding between your femur and your tibia. Your exam is reassuring do not note any significant ligament injury. Best thing he could do at this point is to take ibuprofen at 600 mg 3 times a day and do that consistently for the next week or so until you can have orthopedic follow-up. I recommend that you go back to the practice that saw you for your ACL repair. As far as helping with the swelling continued to elevate the leg as much as possible and apply ice off and on throughout the day. Probably best to stay nonweightbearing and use the crutches as much as you can. It was a pleasure to take care of you today. Prescriptions: No Action benzonatate 100 mg capsule 100 mg PO BID PRN (Reason: cough) Qty: 20 0RF bupropion HCl 150 mg tablet extended release 24 hr 150 mg PO QAM Qty: 90 3RF Referrals: Marisela Le DO [Primary Care Provider] - Stand Alone Forms: Patient Portal/API
== END 2023-09-14 14:15 | disposition home or self-care (01) ==
PROVIDERS: Emergency Provider Physician Assistant; PCP Family Medicine
DX: S89.92XA Unspecified injury of left lower leg, initial encounter (principal); X50.0XXA Overexertion from strenuous movement or load, initial encounter; Y93.39 Activity, other involving climbing, rappelling and jumping off
CPT/HCPCS: 73562; 99283

== ENCOUNTER → 2023-10-03 16:27 | Outpatient (CLI) | payer OTHER, MEDICAID, SELFPAY ==
[2023-10-03 17:37] LABS: Hemoglobin A1C% w Est Avg Glu 5.7 % (4.0-6.0)
[2023-10-03 17:49] LABS: Cholesterol 211 mg/dL (140-199); HDL Cholesterol 31 mg/dL (40-60); LDL Cholesterol Calculated 124 mg/dL (<100); Triglycerides 282 mg/dL (35-150)
[2023-10-03 18:17] LABS: TSH w/ Reflex to FT4 1.64 uIU/mL (0.47-4.68)
== END ==
PROVIDERS: PCP Family Medicine; Referring Provider Family Medicine; Visit Provider Family Medicine
DX: R73.01 Impaired fasting glucose (principal); E66.01 Morbid (severe) obesity due to excess calories; Z68.41 Body mass index [BMI] 40.0-44.9, adult
CPT/HCPCS: 36415; 80061; 83036; 84443

== ENCOUNTER → 2023-10-10 10:47 | Outpatient (CLI) | payer OTHER, MEDICAID, SELFPAY ==
--- NOTE | 2023-10-10 11:30 | DI.MRI.S_ITS ---
PROCEDURE: MR KNEE LT WO CON INDICATIONS: hx left ACL reconstruction; new knee pain TECHNIQUE: Noncontrast sagittal PD fast spin echo and T2 fast spin echo with fat saturation, sagittal 3-D FLASH with fat saturation; coronal T1 spin echo and PD fast spin echo with fat saturation, and axial PD fast spin echo with fat saturation through the knee. COMPARISON: [facility], CR, XR KNEE LT 3V, 09/14/2023, 13:02. FINDINGS: Image quality: Excellent. Menisci: The medial and lateral menisci demonstrate normal morphology and internal signal. The meniscal root ligaments appear intact. Cruciate ligaments: Patient is status post anterior cruciate ligament repair with expected signal changes from ligamentization. No partial or full-thickness graft tears. No posterior bowing of the graft to suggest roof impingement. Femoral and tibial tunnels are in expected positions, without widening or tunnel cysts. The posterior cruciate ligament appears intact. Medial structures: The medial collateral ligament appears thickened near its femoral insertion. Visualized portions of the pes anserinus tendons appear intact. No abnormal bursal fluid. Lateral structures: The lateral collateral ligament, long and short heads of the biceps femoris tendon appear thickened. Tendinosis and low-grade partial-thickness tear involving popliteus tendon is seen extending to musculotendinous junction. Iliotibial band appears normal, without findings to suggest friction syndrome. Anterior structures: The quadriceps and patellar tendons appear intact. Patellar alignment is normal. No femoral trochlear dysplasia or ventral trochlear prominence. No edema in the infrapatellar fat pad. No localized arthrofibrosis (cyclops lesion) in the anterior intercondylar notch. Bones and cartilage: Sagittal images demonstrate no abnormal anterior tibial translation. No bone marrow contusions or fractures. 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 Patellar cartilage is intact. Joint space: There is moderate knee joint fluid. There is a tiny Headley's cyst. No intra-articular bodies. Normal appearing synovial plicae are incidentally noted. IMPRESSION: 1. Prior ACL reconstruction with postsurgical changes. No gross marrow edema. No acute fracture or dislocation. 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 2. Moderate joint effusion and a tiny Headley's cyst. No gross loose bodies. 3. The ACL graft is intact. The PCL is intact. 4. Low-grade MCL sprain. Low-grade LCL sprain. Distal biceps femorals tendinosis. Tendinosis and low-grade partial-thickness tear involving popliteus tendon extending to musculotendinous junction. Dictated by: Wes Gurrola M.D. on 10/10/2023 at 15:16 Approved by: Wes Gurrola M.D. on 10/10/2023 at 15:21
== END ==
PROVIDERS: PCP Family Medicine; Referring Provider Family Medicine; Visit Provider Family Medicine
DX: S89.90XA Unspecified injury of unspecified lower leg, initial encounter (principal); M94.262 Chondromalacia, left knee; M25.462 Effusion, left knee; S83.412A Sprain of medial collateral ligament of left knee, initial encounter; S83.422A Sprain of lateral collateral ligament of left knee, initial encounter; S76.812A Strain of other specified muscles, fascia and tendons at thigh level, left thigh, initial encounter; M25.562 Pain in left knee; G89.29 Other chronic pain; Z98.890 Other specified postprocedural states
CPT/HCPCS: 73721

== ENCOUNTER → 2024-03-18 07:43 | Outpatient (CLI) | payer OTHER, MEDICAID, SELFPAY ==
--- NOTE | 2024-03-18 07:45 | DI.US.S_ITS ---
PROCEDURE: US PELVIC COMPLETE INDICATIONS: pcos TECHNIQUE: Real-time scanning was performed of the pelvic organs, with image documentation. Additional endovaginal scanning was necessary due to incomplete visualization of the adnexal and endometrial structures by transabdominal scanning. COMPARISON: [facility], US, US PELVIC COMPLETE, 12/19/2021, 16:11. FINDINGS: Uterus: Uterus is anteverted and normal in size at 7.6 x 3.7 x 4.8 cm. The myometrium is heterogeneous. The endometrium measures 6.7 mm combined thickness. Movement of blood is seen within the endometrium. Ovaries: The right ovary measures 3.6 x 2.9 x 2.9 cm, with a calculated ovarian volume of 16.0 cc. The left ovary measures 3.1 x 2.1 x 3.4 cm, with a calculated ovarian volume of 11.6 cc. Greater than 12 follicles can be seen in each ovary. No adnexal masses are seen. Other: No pathologic free abdominal or pelvic fluid. IMPRESSION: Greater than 12 sub-5 mm follicular cysts in the bilateral ovaries, a nonspecific finding which can be associated with polycystic ovarian morphology, recommend clinical correlation. We strive to produce accurate, complete, and clear reports of imaging services. To assist us in improving patient care, this report was composed using standard report templates and voice recognition software. Therefore, it may contain abnormal punctuation, insertions and/or omissions. Occasional wrong-word or sound-alike substitutions may occur. Though we review the report and make efforts to correct it, we do recommend that the report be read carefully in proper context to recognize any text inaccuracies. Dictated by: Jose Guadalupe Huddleston M.D. on 03/18/2024 at 9:32 Approved by: Jose Guadalupe Huddleston M.D. on 03/18/2024 at 9:33
== END ==
PROVIDERS: PCP Family Medicine; Referring Provider Obstetrics & Gynecology; Visit Provider Obstetrics & Gynecology
DX: Z87.42 Personal history of other diseases of the female genital tract (principal); Z09 Encounter for follow-up examination after completed treatment for conditions other than malignant neoplasm
CPT/HCPCS: 76856

== ENCOUNTER → 2025-07-06 09:40 | Outpatient (CLI) | payer OTHER, SELFPAY ==
[2025-07-06 10:51] LABS: Hemoglobin A1C% w Est Avg Glu 5.7 % (4.0-6.0)
[2025-07-06 10:58] LABS: Alanine Aminotransferase 56 IU/L (<35); Albumin 4.5 g/dL (3.5-5.0); Albumin Globulin Ratio 1.6 (1.0-2.8); Alkaline Phosphatase 78 U/L (38-126); Blood Urea Nitrogen 9 mg/dL (7-17); Calcium 9.5 mg/dL (8.4-10.2); Carbon Dioxide 23 mmol/L (22-32); Chloride 102 mmol/L (98-107); Cholesterol 188 mg/dL (140-199); Estimated Glomerular Filt Rate > 60 mL/min (>60); Globulin 2.9 g/dL (1.7-4.1); Glucose 116 mg/dL (70-99); HDL Cholesterol 41 mg/dL (40-60); HEMOLYSIS 18 (0-50); Potassium 4.2 mmol/L (3.4-5.1); Sodium 136 mmol/L (137-145); Total Protein 7.4 g/dL (6.3-8.2); Triglycerides 142 mg/dL (35-150)
[2025-07-08 23:08] LABS: QuantiFERON Mitogen Value >10.00 IU/mL (.); QuantiFERON Nil Value 0.05 IU/mL (.); QuantiFERON TB Gold Plus Negative (Negative); QuantiFERON TB1 Ag Value 0.05 IU/mL (.); QuantiFERON TB2 Ag Value 0.04 IU/mL (.)
== END ==
PROVIDERS: PCP Family Medicine; Referring Provider Family Medicine; Visit Provider Family Medicine
DX: E28.2 Polycystic ovarian syndrome (principal); R73.01 Impaired fasting glucose; L40.9 Psoriasis, unspecified; E66.01 Morbid (severe) obesity due to excess calories; Z68.41 Body mass index [BMI] 40.0-44.9, adult; E78.2 Mixed hyperlipidemia; Z11.1 Encounter for screening for respiratory tuberculosis; Z01.84 Encounter for antibody response examination
CPT/HCPCS: 36415; 80053; 80061; 83036; 86480; 86787